=== PATIENT | male | born 1990 | race Two or more races ===

== ENCOUNTER → 2021-04-12 | Emergency (ER) | payer OTHER ==
[~2021-04-12] VITALS: Ht 177.8 cm; Wt 72.6 kg
[~2021-04-12] MED LIST: NEOMYCIN-BACITRACIN-POLYM UNITDOSE PKG TOP OINT TOP ONE
[2021-04-12 19:43] VITALS: BP 146/96
== END | disposition home or self-care (01) ==
LOC: ER 17:50 → EDBD 17:50
DX: S61.213A Laceration without foreign body of left middle finger without damage to nail, initial encounter (principal); J45.909 Unspecified asthma, uncomplicated; W26.0XXA Contact with knife, initial encounter; Y93.89 Activity, other specified; Y92.89 Other specified places as the place of occurrence of the external cause; Y99.8 Other external cause status
CPT/HCPCS: 12002